=== PATIENT | female | born 1955 | race Two or more races ===

== ENCOUNTER 2021-04-20 06:23 | Emergency (ER) | payer OTHER, SELFPAY ==
[~2021-04-20] VITALS: Ht 165.1 cm; Wt 60.1 kg
--- NOTE | 2021-04-20 07:45 | NUR ---
wrong address clerk note: Pt to room from [facility] [place], ambulatory with steady gait, SANJAY.
--- NOTE | 2021-04-20 07:51 | NUR ---
ASSUMED CARE OF PT AT THIS TIME FROM TRIAGE. 66 Y/O A&OX4 F PRESENTS STATING "RIGHT EYE INFECTION, STYE FRIDAY, DID [place] APPT YESTERDAY MORNING, PRESCRIBED ERYTHROMYCIN, BUT I THINK IT MADE IT WORSE. NOT HAVNG TROUBLE SEEING AT ALL BUT MAYBE A LITTLE HAZY FROM THE EYE OINTMENT. BEEN DOING WARM SOAKS." PERIORBITAL EDEMA NOTED WITH EYE DISCHARGE, ERYTHEMA RIGHT UPPER LID. CONT PULSE OX, BP MONITORS APPLIED. VSS. CALL LIGHT IN REACH. FALL PRECAUTIONS IN PLACE. DR. BENITEZ AT BEDSIDE FOR EVALUATION, NO VISUAL ACUITY TEST NEEDED PER ERP.
[2021-04-20 08:00] VITALS: BP 125/56
== END 2021-04-20 08:45 | disposition home or self-care (01) ==
LOC: ED 08:33
DX: H10.31 Unspecified acute conjunctivitis, right eye (principal); L03.211 Cellulitis of face
CPT/HCPCS: 99283